=== PATIENT | female | born 1985 | race Caucasian/White ===

== ENCOUNTER 2020-07-16 15:02 | Emergency (ER) | payer SELFPAY ==
[2020-07-16 15:40] LABS: BASO # 0.07 (0.02-0.10); EOS # 0.15 (0.04-0.40); EOS % 1.6 % (1.0-5.0); HEMATOCRIT 41.7 % (37.0-47.0); HEMOGLOBIN 13.5 g/dL (12.5-16.0); LYMPH# 2.42 (1.50-4.00); MEAN CELL VOLUME 85 fl (78-100); MEAN CORPUSCULAR HEMOGLOBIN 28 pg (27-31); MEAN CORPUSCULAR HGB CONC 32 g/dL (33-37); MEAN PLATELET VOLUME 11.2 fl (7.4-10.4); MONO # 0.62 (0.20-0.80); NEU # 6.26 (1.40-6.50); PLATELET COUNT 294 K/mm3 (130-400); RED BLOOD COUNT 4.89 M/mm3 (4.10-5.30); RED CELL DISTRIBUTION WIDTH 14.1 % (11.5-14.5); WHITE BLOOD COUNT 9.5 K/mm3 (4.8-10.8)
[2020-07-16 15:57] LABS: POTASSIUM 3.6 mmol/L (3.5-5.1)
[2020-07-16 15:59] LABS: CALCIUM 8.6 mg/dL (8.3-10.5)
[2020-07-16 16:09] LABS: URINE APPEARANCE CLOUDY; URINE BILIRUBIN NEGATIVE (NEGATIVE); URINE BLOOD 250 ery/uL (NEGATIVE); URINE COLOR YELLOW; URINE GLUCOSE NEGATIVE (NEGATIVE); URINE KETONE NEGATIVE (NEGATIVE); URINE LEUKOCYTE ESTERASE TRACE (NEGATIVE); URINE NITRATE NEGATIVE (NEGATIVE); URINE PROTEIN(semi-quant) TRACE mg/dL (NEGATIVE); URINE UROBILINOGEN NORMAL (NORMAL)
[2020-07-16 16:10] LABS: URINE MUCUS PRESENT (NOT PRESENT)
[2020-07-16 17:02] LABS: CLUE CELLS NOT OBSERVED (Not Observd)
[2020-07-16] MEDS ORDERED: PHENERGAN 25 TA25 MG PO (18:30)
[2020-07-16 18:38] VITALS: BP 118/69
== END 2020-07-16 18:39 | disposition home or self-care (01) ==
LOC: ED 15:02
PROVIDERS: Nurse Practitioner Primary Care
DX: N93.9 Abnormal uterine and vaginal bleeding, unspecified (principal); Z32.02 Encounter for pregnancy test, result negative
CPT/HCPCS: J2550; J3490; J7030; Q0111; Q9967

== ENCOUNTER 2020-08-10 20:49 | Emergency (ER) | payer SELFPAY ==
[~2020-08-10 20:49] MED LIST: PHENERGAN 25 TA25 MG PO
[2020-08-10 21:56] VITALS: BP 138/83
== END 2020-08-10 21:56 | disposition home or self-care (01) ==
LOC: ED 20:49
DX: S63.636A Sprain of interphalangeal joint of right little finger, initial encounter (principal); W18.49XA Other slipping, tripping and stumbling without falling, initial encounter; Y92.34 Swimming pool (public) as the place of occurrence of the external cause